=== PATIENT | female | born 1985 | race Caucasian/White ===

== ENCOUNTER 2024-08-19 11:20 | Inpatient (IN) | payer MEDICAID, SELFPAY ==
--- NOTE | ~2024-08-19 | CT_ITS ---
CLINICAL HISTORY: Abdominal pain Iv contrast only CT abdomen and pelvis with contrast Comparison: None Findings: No consolidation at the lung bases. Status post cholecystectomy. Unremarkable bladder. Left renal cyst. Bilateral renal subcentimeter low attenuating lesions which are too small to characterize. No hydronephrosis. Right nephrolithiasis is punctate. No left nephrolithiasis. Intrauterine device in appropriate position. The other solid organs are unremarkable. No small bowel dilation or definitive wall thickening. The cecum is prominent in size, measuring up to 7.5 cm which may indicate mild ileus. A normal appendix is likely identified. No secondary signs of acute appendicitis. There is liquid stool throughout the colon. Question mild wall thickening of the colon. Normal vasculature. No lymphadenopathy. No ascites. No acute osseous abnormality. Impression: Liquid stool throughout the colon may indicate diarrhea. Question wall thickening of the colon which may be due to colitis. This document has been electronically signed by: Madeline Moreno MD on 08/19/2024 14:13:08
[2024-08-19 11:33] VITALS: BP 100/58; BP 101/63; PULSE 58; PULSE 73; RESP 18; TEMP 36.4; O2SAT 100; BMI 23.0
--- NOTE | 2024-08-19 11:43 | ED.ABDPAIN ---
HPI - Abdominal Pain General Chief Complaint: Abdominal Pain Stated Complaint: ABD PAIN Time Seen by Provider: 08/19/24 11:34 Source: patient Mode of arrival: ambulatory Limitations: no limitations History of Present Illness HPI narrative: This is a 39 years old female presented to the emergency department complaining of abdominal pain she was referred to us by the urgent care, she states that she has been having abdominal pain and nausea and vomiting since . She had a prior cholecystectomy. MD elicited complaint: abdominal pain Onset (ago): day(s) (3) Pain Consistency: constant Location: epigastric Severity: moderate Quality: cramping Radiation: none Migration to: no migration Exacerbating factors: eating Relieving factors: nothing Related Data Allergies Allergy/AdvReac Type Severity Reaction Status Date / Time No Known Allergies Allergy Verified 08/19/24 11:35 Review of Systems Gastrointestinal: Reports abdominal pain and Reports GI cramping PMFSH Past Medical History Medical History Cyclical vomiting syndrome Asthma FH: cholecystectomy Surgical History [place] teeth removed Hx of tonsillectomy Social History Social History Smoked in Last 30 Days: No Use of substances other than those prescribed or required for medical reasons: Yes Substance Use Type: Heroin and Marijuana Substance Use Frequency: Daily Advance Directives: No Advance Directives Information Provided: Yes Do you have a plan to hurt others: No Plan Patient : No Physical Exam ED Vital Signs: Vital Signs - 24 hr 08/19/24 11:33 08/19/24 15:08 Temperature 97.5 F 98.1 F Pulse Rate 58 63 Respiratory Rate 18 16 Blood Pressure 101/63 95/54 L Pulse Oximetry 100 99 Oxygen Delivery Method Room Air Room Air BMI result Body Mass Index 23.0 Mild distress Const General: cooperative Nutritional Appearance: average body habitus Orientation/consciousness: patient oriented x3 HENMT Head: Yes normal to inspection Ears: hearing grossly normal bilaterally Face and sinus: Yes normal facial exam Neck Neck: Yes normal visual inspection Chest Chest palpation & inspection: normal inspection of the chest Resp Effort & Inspection: normal respiratory effort Auscultation: clear to auscultation bilaterally Cardio Jugular venous distension: no JVD Rate: regular rate Rhythm: regular rhythm GI Inspection: Yes normal to inspection Palpation (GI): Soft to palpation, not firm, nontender and no guarding Skin General skin exam: no rashes or lesions noted Lesions: no lesions Rashes: no rashes Neuro General: patient oriented x3 Course Reevaluation(s) Reevaluation #1: WORKUP COMPLETED PATIENT HAS A LACTIC ACIDOSIS ELEVATED WHITE COUNT IT IS REASONABLE TO ADMIT THE PATIENT, CT SHOWED A POSSIBLE COLITIS WE WILL COVER WITH IV ANTIBIOTIC LEVAQUIN AND FLAGYL CASE WAS DISCUSSED WITH THE HOSPITALIST Medical Decision Making Medical Decision Making [facility] Narrative: Patient presented to the emergency department complaining of abdominal pain nausea vomiting we will insert IV administer IV fluids and reassess Differential Diagnosis Differential Diagnoses: The differential diagnosis associated with the presentation includes Gastritis/diverticulitis/colitis Admission/Observation Consideration of admission/observation: Escalation of care including admission/observation considered Consult Healthcare Provider Management of the patient was discussed with: Hospitalist Lab Data [facility] Lab Attestation statement: I reviewed the patient's lab results. 08/19/24 11:48 08/19/24 11:48 Labs: Lab Results 08/19/24 08/19/24 08/19/24 Range/Units 11:40 11:48 14:03 WBC 25.0 H (4.8-10.8) X10*3/uL RBC 4.83 (4.20-5.50) X10*6/uL Hgb 14.1 (12.0-16.0) g/dl Hct 40.4 (37.0-47.0) % MCV 83.6 (80.0-98.0) fL MCH 29.2 (27.0-33.0) pg MCHC 34.9 (31.0-35.0) g/dl RDW 13.0 (11.0-16.0) % Plt Count 349 (160-400) X10*3/uL MPV 9.9 (9.4-12.3) fL Immature Gran % (Auto) 0.5 H (0.0-0.4) % Neut % (Auto) 80.1 H (45-73) % Lymph % (Auto) 10.3 L (20-40) % [place] % (Auto) 7.1 (2-11) % Eos % (Auto) 1.6 (0-4) % Baso % (Auto) 0.4 (0-2) % Lymph # (Auto) 2.6 (1.2-4.9) X10*3/uL [place] # (Auto) 1.8 H (0.1-1.2) X10*3/uL Eos # (Auto) 0.4 (0.0-0.4) X10*3/uL Baso # (Auto) 0.1 (0.0-0.2) X10*3/uL Abs Immat Gran (auto) 0.13 H (0.00-0.03) X10*3/uL Absolute Neuts (auto) 20.1 H (2.0-8.3) x10*3/uL Absolute Nucleated RBC 0.000 (0.0-0.012) X10*3/uL Nucleated RBC % (auto) 0.0 (0.0-0.2) /100WBC Smear Tech's Comments VERIFIED Sodium 138 (135-145) mmol/L Potassium 3.7 (3.3-5.1) mmol/L Chloride 110 H (96-108) mmol/L Carbon Dioxide 21 L (22-29) mmol/L Anion Gap 11 L (12-20) BUN 15 (9-16) mg/dL Creatinine 0.77 (0.5-1.4) mg/dL Estim Creat Clear Calc 89.1 Estimated GFR > 60 Random Glucose 84 (60-115) mg/dL Lactic Acid 2.8 H* (0.5-2.0) mmol/L Calcium 9.1 (8.4-10.2) mg/dL Total Bilirubin 1.1 H (0.0-1.0) mg/dL AST 17 (5-31) U/L ALT 10 (0-31) U/L Alkaline Phosphatase 66 (39-117) U/L Total Protein 7.3 (6.5-8.0) g/dL Albumin 4.1 (3.5-5.0) g/dL Lipase 29 (8-78) U/L Beta HCG, Quant < 2 mIU/mL Urine Color Yellow Urine Appearance Clear Urine pH 7.0 (5.0-9.0) Ur Specific [place] <= 1.005 (1.005-1.025) Urine Protein Negative (Neg-Trace) mg/dL Urine Glucose (UA) Negative (Negative) mg/dL Urine Ketones Negative (Negative) mg/dL Urine Blood Negative (Negative) Urine Nitrite Negative (Negative) Ur Leukocyte Esterase Negative (Negative) Urine RBC 0-2 (0-2) /HPF Urine WBC 0-5 (0-5) /HPF Ur Squamous Epith Cells 0-2 (0-2) /HPF Urine Bacteria None Seen (None Seen) Hyaline Casts 0-2 (0-2) /LPF Urine Test NEGATIVE (NEGATIVE) Urine Opiates Screen Not Detected (Not Detect) Ur Buprenorphine Scrn Not Detected (Not Detect) ng/mL Ur Oxycodone Screen Not Detected (Not Detect) ng/mL Urine Methadone Screen Not Detected (Not Detect) ng/mL Urine Fentanyl Screen POSITIVE H (Not Detect) Ur Barbiturates Screen Not Detected (Not Detect) Ur Phencyclidine Scrn Not Detected (Not Detect) Ur Amphetamines Screen Not Detected (Not Detect) U Benzodiazepines Scrn Not Detected (Not Detect) Urine Cocaine Screen Not Detected (Not Detect) U Marijuana (THC) Screen POSITIVE H (Not Detect) Independent Interpretation I performed an independent interpretation of an: CT Scan Radiology Impression Discussion of test interpretation with radiology: I have reviewed the radiologist's reading. Chronic Conditions SUBSTANCE ABUSE Core Measures AMI core measures followed: Yes Medications Administered Generic Name Dose Route Start Last Admin Trade Name Freq PRN Reason Stop Dose Admin Lactated Ringer's 1,000 mls @ 999 mls/hr 08/19/24 15:00 08/19/24 15:16 Lr IV 08/19/24 16:00 999 mls/hr .Q1H1M REA Administration Metronidazole 500 mg in 100 mls @ 100 mls/hr 08/19/24 14:54 08/19/24 15:16 Flagyl IV 08/19/24 15:53 100 mls/hr ONCE ONE Administration Discontinued Medications Generic Name Dose Route Start Last Admin Trade Name Freq PRN Reason Stop Dose Admin Diphenhydramine HCl 25 mg 08/19/24 11:41 08/19/24 11:56 Diphenhydramine Hcl 50 Mg/Ml Vial IVPUSH 08/19/24 11:42 25 mg ONCE ONE Administration Sodium Chloride 1,000 mls @ 999 mls/hr 08/19/24 11:45 08/19/24 11:57 Ns IVCONT 08/19/24 12:45 999 mls/hr .Q1H1M REA Administration Iohexol 100 ml 08/19/24 13:14 08/19/24 13:15 Iohexol 350 Mg/Ml 100 Ml Infus..Btl IV 08/19/24 13:15 85 ml ONCE ONE Administration Lorazepam 1 mg 08/19/24 11:39 08/19/24 11:57 Lorazepam 2 Mg/Ml Vial IVPUSH 08/19/24 11:40 1 mg ONCE ONE Administration Metoclopramide HCl 10 mg 08/19/24 11:41 08/19/24 11:57 Metoclopramide Hcl 10 Mg/2 Ml Vial IVPUSH 08/19/24 11:42 10 mg ONCE ONE Administration Critical Care Time Critical Care Time Critical Care Time: Yes Total Critical Care Time: 60 Attestation: LACTIC ACIDOSIS ELEVATED WHITE COUNT Discharge Plan Discharge Clinical Impression: Colitis Abdominal pain Qualifiers: Abdominal location: generalized Qualified Code(s): R10.84 - Generalized abdominal pain Patient Disposition: Admitted As Inpatient Print Language: Yakut
[2024-08-19 11:56] LABS: Basophils Absolute Auto 0.1 X10*3/uL (0.0-0.2); Basophils Percent Auto 0.4 % (0-2); Eosinophils Absolute Auto 0.4 X10*3/uL (0.0-0.4); Eosinophils Percent Auto 1.6 % (0-4); Hematocrit 40.4 % (37.0-47.0); Hemoglobin 14.1 g/dl (12.0-16.0); Imm Gran Abs Auto 0.13 X10*3/uL (0.00-0.03); Imm Gran Pct Auto 0.5 % (0.0-0.4); Lymphocytes Absolute Auto 2.6 X10*3/uL (1.2-4.9); Lymphocytes Percent Auto 10.3 % (20-40); MANUAL DIFF FLAG SCAN; Mean Corpuscular HGB Conc 34.9 g/dl (31.0-35.0); Mean Corpuscular Hemoglobin 29.2 pg (27.0-33.0); Mean Corpuscular Volume 83.6 fL (80.0-98.0); Mean Platelet Volume 9.9 fL (9.4-12.3); Monocytes Absolute Auto 1.8 X10*3/uL (0.1-1.2); Monocytes Percent Auto 7.1 % (2-11); Neutrophils Absolute Auto 20.1 x10*3/uL (2.0-8.3); Neutrophils Percent Auto 80.1 % (45-73); Platelet Count 349 X10*3/uL (160-400); Red Blood Count 4.83 X10*6/uL (4.20-5.50); SCAN SMEAR FLAG 1
[2024-08-19] MEDS: diphenhydrAMINE HCL 50 MG/ML VIAL 25 MG IVPUSH (11:56)
[2024-08-19] MEDS: 0.9 % Sodium Chloride 1,000 ML 999 ML IVCONT (11:57)
[2024-08-19] MEDS: Metoclopramide HCl 10 MG/2 ML VIAL IVPUSH (11:57)
[2024-08-19] MEDS: LORazepam 2 MG/ML VIAL 1 MG IVPUSH (11:57)
--- NOTE | 2024-08-19 12:01 | PC.NURSE ---
patient a&ox3, iv inserted, labs drawn, pt ambulated to bathroom with steady gait to bathroom, pt c/o 12/06 abd pain. pt also states she snorted heroin today to help with the pain. ivf running per order, pt medicated per order, call roger within reach, plan of care ongoing
[2024-08-19 12:02] LABS: Appearance Urine Clear; Color Urine Yellow; Glucose Urine UA Negative (Negative); Leukocyte Esterase Urine Negative (Negative); Nitrite Urine Negative (Negative); Specific Gravity - Urine <= 1.005 (1.005-1.025); Urine Blood Negative (Negative); Urine Ketones Negative (Negative); Urine Protein Negative (Neg-Trace)
[2024-08-19 12:06] LABS: UPreg QC Valid YES; Urine Pregnancy NEGATIVE (NEGATIVE)
[2024-08-19 12:07] LABS: Bacteria Urine None Seen (None Seen); Hyaline Casts Urine 0-2 /LPF (0-2); RBC Urine 0-2 /HPF (0-2); Squamous Epithelial Cell Urine 0-2 /HPF (0-2); WBC Urine 0-5 /HPF (0-5)
[2024-08-19 12:16] LABS: SLIDE REVIEW VERIFIED
[2024-08-19 12:19] LABS: Amphetamine Screen Urine Not Detected (Not Detect); Barbiturates, Urine Not Detected (Not Detect); Benzodiazepines Screen Urine Not Detected (Not Detect); Buprenorphine Scr Not Detected (Not Detect); Cannabinoid Screen Urine POSITIVE (Not Detect); Cocaine Screen Urine Not Detected (Not Detect); Fentanyl, urine POSITIVE (Not Detect); Methadone Screen, Urine Not Detected (Not Detect); Opiate Screen Urine Not Detected (Not Detect); Oxycodone Screen Urine Not Detected (Not Detect); Phencyclidine Screen Urine Not Detected (Not Detect)
[2024-08-19 12:20] LABS: Alanine Aminotransferase 10 U/L (0-31); Albumin Level 4.1 g/dL (3.5-5.0); Alkaline Phosphatase 66 U/L (39-117); Anion Gap 11 (12-20); Aspartate Amino Transferase 17 U/L (5-31); Bilirubin Total 1.1 mg/dL (0.0-1.0); Blood Urea Nitrogen 15 mg/dL (9-16); Calcium 9.1 mg/dL (8.4-10.2); Carbon Dioxide 21 mmol/L (22-29); Chloride 110 mmol/L (96-108); Creatinine Clr Calc Pharmacy 89.1; Estimated Glomerular Filt Rate > 60; Glucose Random 84 mg/dL (60-115); Lipase 29 U/L (8-78); Potassium 3.7 mmol/L (3.3-5.1); Sodium 138 mmol/L (135-145); Total Protein 7.3 g/dL (6.5-8.0)
[2024-08-19 12:31] LABS: HCG Quantitative < 2 mIU/mL
[2024-08-19] MEDS: iohexoL 350 MG/ML 100 ML INFUS..BTL IV (13:15)
[2024-08-19 14:35] LABS: Lactic Acid 2.8 mmol/L (0.5-2.0)
[2024-08-19 15:08] VITALS: BP 95/54; PULSE 63; RESP 16; TEMP 36.7; O2SAT 99
[2024-08-19] MEDS: metroNIDAZOLE/NS 500 MG/100 ML PIGGYBACK 100 MG IV ×2 (15:16→22:30)
[2024-08-19] MEDS: Lactated Ringers 1,000 ML 999 ML IV (15:16)
--- NOTE | 2024-08-19 15:17 | PC.NURSE ---
ivf and abx started per order, vss, hospitalist at bedside, call roger within reach, plan of care ongoing
--- NOTE | 2024-08-19 15:27 | PM.IMHP ---
History of Present Illness Date of Service: 08/19/24 Attending physician on admission: Vince Wilcox Chief Complaint: abdominal pain This is a 39-year-old female who presents to the emergency department with complaints of abdominal pain. She reports constant epigastric abdominal pain since . Her pain is associated with nausea and vomiting. She has had decreased oral intake. She also reports diarrhea although upon further investigation this appears to be chronic since she had a coli cystectomy. She denies any recent travel or take out food. She denies any associated fever or chills. Her diarrhea is nonbloody. In the emergency department she had elevated white blood cell count at 25,000, lactic acid of 2.8. She had a CAT scan which showed possible wall thickening and possible colitis. She was treated with IV antibiotics in the decision was made to admit her to the hospital for further management. Of note patient states she has the same epigastric abdominal pain that occurs at least once a month and has been doing so for the past 13 years. She does not currently have a primary care provider. She has reportedly seen multiple providers including GI in the past with no diagnosis or solution to her abdominal pain. She reports smoking marijuana multiple times daily. She also recently ?tried? snorting heroin for the past three days however her tox screen was positive for marijuana and fentanyl only. Review of Systems Review of Systems: Yes all other systems are reviewed and are negative Constitutional: Constitutional: Denies chills and Denies fever(s) Gastrointestinal: Gastrointestinal: Reports abdominal pain, Reports nausea and Reports vomiting PMF Medical History Cyclical vomiting syndrome Asthma FH: cholecystectomy Surgical History [place] teeth removed Hx of tonsillectomy Social History Smoked in Last 30 Days: No Use of substances other than those prescribed or required for medical reasons: Yes Substance Use Type: Heroin and Marijuana Substance Use Frequency: Daily Advance Directives: No Advance Directives Information Provided: Yes Do you have a plan to hurt others: No Plan Patient : No Meds Allergies Allergy/AdvReac Type Severity Reaction Status Date / Time No Known Allergies Allergy Verified 08/19/24 11:35 Active Medications: Current Medications Acetaminophen (Acetaminophen 325 Mg Tablet) 650 mg PO Q6H PRN PRN Reason: Pain, Mild 1-3,fever,headache Calcium Carbonate (Calcium Carbonate 750 Mg Tab.Chew) 750 mg PO Q4H PRN PRN Reason: Heartburn Ceftriaxone Sodium (Ceftriaxone Sodium 1 Gm Vial) 1 gm IVPUSH Q24H [facility] Enoxaparin Sodium (Enoxaparin Sodium 40 Mg/0.4 Ml Syringe) 40 mg SUBCUT Q24H [facility] Lactated Ringer's (Lr) 1,000 mls @ 999 mls/hr IV .Q1H1M [facility] Stop: 08/19/24 16:00 Last Admin: 08/19/24 15:16 Dose: 999 mls/hr Levofloxacin (Levaquin) 500 mg in 100 mls @ 100 mls/hr IV ONCE ONE Stop: 08/19/24 15:52 Metronidazole (Flagyl) 500 mg in 100 mls @ 100 mls/hr IV ONCE ONE Stop: 08/19/24 15:53 Last Admin: 08/19/24 15:16 Dose: 100 mls/hr Metronidazole (Flagyl) 500 mg in 100 mls @ 100 mls/hr IV Q8H [facility] Magnesium Hydroxide (Milk Of Magnesia 30 Ml Oral.Susp) 30 ml PO DAILY PRN PRN Reason: Constipation Melatonin (Melatonin 3 Mg Tablet) 6 mg PO BEDTIME PRN PRN Reason: Insomnia Morphine Sulfate (Morphine Sulfate 4 Mg/Ml Cartridge) 2 mg IVPUSH Q4H PRN; Protocol PRN Reason: Pain, Severe (Pain Scale 7-10) Ondansetron HCl (Ondansetron Hcl 4 Mg/2 Ml Vial) 4 mg IVPUSH Q8H PRN PRN Reason: Nausea and Vomiting Pantoprazole Sodium (Pantoprazole Sodium 40 Mg/10 Ml Vial) 40 mg IVPUSH DAILY@0630 [facility] Sodium Chloride (0.9 % Sodium Chloride Flush 3 Ml Syringe) 3 ml IVFLUSH QSHIFT [facility] Home Medications ?Medication ?Instructions ?Recorded ?Confirmed ?Last Taken ?Type albuterol sulfate 90 mcg/actuation 2 puff inhalation Q6H PRN dyspnea 08/19/24 Unknown History aerosol inhaler (Ventolin HFA) fluticasone propionate 50 1 spray intranasal BID 08/19/24 Unknown History mcg/actuation nasal spray,suspension ipratropium 0.5 mg-albuterol 3 mg 3 ml inhalation Q8H PRN wheezing 08/19/24 Unknown History (2.5 mg base)/3 mL nebulization soln Physical Exam Vital Signs and Narrative: Vital Signs: Last Vital Signs Temp 98.1 F 08/19/24 15:08 Pulse 63 08/19/24 15:08 Resp 16 08/19/24 15:08 BP 95/54 L 08/19/24 15:08 Pulse Ox 99 08/19/24 15:08 O2 Del Method Room Air 08/19/24 15:08 BMI result Body Mass Index 23.0 Const: Other: tearful General: alert and awake Orientation/consciousness: patient oriented x3 Resp: Effort & Inspection: normal respiratory effort, able to speak in complete sentences, no respiratory distress and no use of accessory muscles Cardio: Rate: regular rate Heart sounds: S1 normal heart sound present GI: Other: no guarding no rebound, no tenderness on exam Inspection: No distended Palpation (GI): not soft and nontender Neuro: General: patient oriented x3, moves all extremities and CN's II-XI intact bilaterally Results Labs 08/19/24 11:48 08/19/24 11:48 Labs: Laboratory Results - last 24 hr 08/19/24 08/19/24 08/19/24 11:40 11:48 14:03 MCV 83.6 MCH 29.2 MCHC 34.9 RDW 13.0 Plt Count 349 MPV 9.9 Immature Gran % (Auto) 0.5 H Neut % (Auto) 80.1 H Lymph % (Auto) 10.3 L [place] % (Auto) 7.1 Eos % (Auto) 1.6 Baso % (Auto) 0.4 Lymph # (Auto) 2.6 [place] # (Auto) 1.8 H Eos # (Auto) 0.4 Baso # (Auto) 0.1 Abs Immat Gran (auto) 0.13 H Absolute Neuts (auto) 20.1 H Absolute Nucleated RBC 0.000 Nucleated RBC % (auto) 0.0 Smear Tech's Comments VERIFIED Anion Gap 11 L Estim Creat Clear Calc 89.1 Estimated GFR > 60 Random Glucose 84 Lactic Acid 2.8 H* Calcium 9.1 Total Bilirubin 1.1 H AST 17 ALT 10 Alkaline Phosphatase 66 Total Protein 7.3 Albumin 4.1 Lipase 29 Beta HCG, Quant < 2 Urine Color Yellow Urine Appearance Clear Urine pH 7.0 Ur Specific [place] <= 1.005 Urine Protein Negative Urine Glucose (UA) Negative Urine Ketones Negative Urine Blood Negative Urine Nitrite Negative Ur Leukocyte Esterase Negative Urine RBC 0-2 Urine WBC 0-5 Ur Squamous Epith Cells 0-2 Urine Bacteria None Seen Hyaline Casts 0-2 Urine Test NEGATIVE Urine Opiates Screen Not Detected Ur Buprenorphine Scrn Not Detected Ur Oxycodone Screen Not Detected Urine Methadone Screen Not Detected Urine Fentanyl Screen POSITIVE H Ur Barbiturates Screen Not Detected Ur Phencyclidine Scrn Not Detected Ur Amphetamines Screen Not Detected U Benzodiazepines Scrn Not Detected Urine Cocaine Screen Not Detected U Marijuana (THC) Screen POSITIVE H Assessment and Plan (1) Abdominal pain: Qualifiers: Abdominal location: generalized Qualified Code(s): R10.84 - Generalized abdominal pain Status: Acute Plan This is a 39-year-old female with history of asthma, PTSD, anxiety, depression who presents to the emergency department with 4 day history persistent abdominal pain found to have possible colitis Abdominal pain Patient reports similar episodes of abdominal pain occurring once a month for the past [address] scan shows possibility of colitis however patient has pain is in the epigastric region, not c/w colitis Other possibilities include marijuana hyperemesis syndrome as patient smokes multiple times daily lipase negative does not meet sepsis criteria We will continue empiric antibiotics for possible underlying colitis Check stool studies, C diff (although pt reports diarrhea is chronic) Continue IVF, IV PPI, IV pain medication, IV nausea medication Blood cultures pending Acute lactic acidosis Not due to sepsis, probably due to dehydration from vomiting Polysubstance use Daily marijuana use, reports only 3 days of heroin use, although tox screen +for fentanyl DVT prophylaxis-Lovenox Quality Stroke Does the patient have a stroke diagnosis?: No VTE Prior VTE?: No VTE Risk Level:: Medical - moderate - high VTE Device Contraindication: N/A - Device Ordered VTE Drug Contraindication: Treatment Not Indicated
--- NOTE | 2024-08-19 16:02 | PHA.MEDREC ---
Addendum entered by Oscar Monterroso [facility] 08/19/24 16:14: med rec reviewed Original Note: Pharmacy Consult ? Medication Reconciliation Pharmacy has completed the medication reconciliation. Spoke to pt to confirm meds.
[2024-08-19 16:09] LABS: Reflex Lactate? Lactic Acid Added
[2024-08-19] MEDS: levoFLOXacin/D5W 500 MG/100 ML PIGGYBACK 100 MG IV (16:41)
[2024-08-19] MEDS: Morphine Sulfate 4 MG/ML CARTRIDGE 2 MG IVPUSH ×2 (17:02→21:39)
[2024-08-19] MEDS: Pantoprazole Sodium 40 MG/10 ML VIAL IVPUSH (17:03)
[2024-08-19] MEDS: Enoxaparin Sodium 40 MG/0.4 ML SYRINGE SUBCUT (17:03)
--- NOTE | 2024-08-19 18:44 | PC.NURSE ---
[facility] DCF came to the ED wanting to speak with the patient, they told this nurse that urgent care filed a case with them. They requested that this nurse get an addiction consult for her to eventually discharge with services. Provider was notified and consult was placed
--- NOTE | 2024-08-19 19:54 | PC.NURSE ---
pt reports 8/10 abd pain, aware pt is still in pain prn last administered 1700, no due til 2099. pt also reports DHALIWAL requested tylenol.
[2024-08-19 20:00] VITALS: BP 112/66; PULSE 76; RESP 16; TEMP 37; O2SAT 98
[2024-08-19] MEDS: Acetaminophen 325 MG TABLET 650 MG PO (20:01)
--- NOTE | 2024-08-19 20:21 | PC.NURSE ---
pt requested food, educated on NPO status.
--- NOTE | 2024-08-19 22:07 | PC.NURSE ---
pt reports 8/10 abd pain, prn given per mar.
[2024-08-20 00:56] VITALS: BP 117/64; PULSE 70; RESP 16; TEMP 37.1; O2SAT 98
[2024-08-20] MEDS: Morphine Sulfate 4 MG/ML CARTRIDGE 2 MG IVPUSH ×2 (01:47→06:06)
--- NOTE | 2024-08-20 03:33 | PC.NURSE ---
pt requested benadryl for sleep, offered melatonin. Yolanda BRICE aware, tulio BRICE no sleep meds after 0300. pt made aware.
[2024-08-20 05:07] LABS: Hematocrit 35.1 % (37.0-47.0); Hemoglobin 12.1 g/dl (12.0-16.0); Mean Corpuscular HGB Conc 34.5 g/dl (31.0-35.0); Mean Corpuscular Hemoglobin 29.3 pg (27.0-33.0); Mean Platelet Volume 10.6 fL (9.4-12.3); Platelet Count 309 X10*3/uL (160-400); Red Blood Count 4.13 X10*6/uL (4.20-5.50); Red Cell Distribution Width 13.1 % (11.0-16.0); White Blood Count 13.7 X10*3/uL (4.8-10.8)
[2024-08-20 05:25] LABS: Anion Gap 11 (12-20); Blood Urea Nitrogen 11 mg/dL (9-16); Calcium 8.2 mg/dL (8.4-10.2); Carbon Dioxide 20 mmol/L (22-29); Chloride 112 mmol/L (96-108); Estimated Glomerular Filt Rate > 60; Glucose Random 75 mg/dL (60-115); Potassium 3.4 mmol/L (3.3-5.1); Sodium 140 mmol/L (135-145)
[2024-08-20 06:00] VITALS: BP 122/71; PULSE 85; RESP 16; O2SAT 98
[2024-08-20] MEDS: Acetaminophen 325 MG TABLET 650 MG PO (06:05)
[2024-08-20] MEDS: metroNIDAZOLE/NS 500 MG/100 ML PIGGYBACK 100 MG IV (06:06)
[2024-08-20] MEDS: Pantoprazole Sodium 40 MG/10 ML VIAL IVPUSH (06:06)
[2024-08-20] MEDS: Fluticasone Propionate Nasal 16 GM SPRAY 1 SPRAY NOSTRIL-B (09:05)
--- NOTE | 2024-08-20 09:55 | PC.NURSE ---
pt speaking w/ addiction asbestos handler, Rosibel, at this time.
--- NOTE | 2024-08-20 11:06 | PM.DS ---
DS: Providers Provider Date of Service: 08/20/24 Date of admission: 08/19/24 15:18 Date of discharge: 08/20/24 Primary care physician: Unknown Physician Consults: 08/19/24 18:10 Addiction Medicine Provider Routine Consulting Provider: Addiction Covering Reason for consultation: substance use; requested by dcf Has provider been notified: No 08/20/24 09:42 Inpt - Recovery Team Routine Comment: Reason for consultation: JOLIE eval DS: Diagnosis Discharge Diagnosis (1) Abdominal pain: Status: Acute DS: Summary Hospital Course Hospital Course: admission hpi Chief Complaint: abdominal pain This is a 39-year-old female who presents to the emergency department with complaints of abdominal pain. She reports constant epigastric abdominal pain since . Her pain is associated with nausea and vomiting. She has had decreased oral intake. She also reports diarrhea although upon further investigation this appears to be chronic since she had a coli cystectomy. She denies any recent travel or take out food. She denies any associated fever or chills. Her diarrhea is nonbloody. In the emergency department she had elevated white blood cell count at 25,000, lactic acid of 2.8. She had a CAT scan which showed possible wall thickening and possible colitis. She was treated with IV antibiotics in the decision was made to admit her to the hospital for further management. Of note patient states she has the same epigastric abdominal pain that occurs at least once a month and has been doing so for the past 13 years. She does not currently have a primary care provider. She has reportedly seen multiple providers including GI in the past with no diagnosis or solution to her abdominal pain. She reports smoking marijuana multiple times daily. She also recently ?tried? snorting heroin for the past three days however her tox screen was positive for marijuana and fentanyl only. Hospital course: The patient was admitted and treated with intravenous antibiotics, specifically ceftriaxone and Flagyl, for probable colitis. The patient demonstrated a quicker than anticipated recovery, with resolution of pain by the following day and successful advancement of diet with good tolerance. As the patient has improved significantly, the plan is for discharge home to complete a 5-day course of oral antibiotics consisting of Cefitin and Flagyl. Outpatient follow-up with the patient's primary care physician (PCP) will be necessary. Final diagnosis: Abdominal pain colitis Time Attestation Discharge Coordination Time (in mins): 40 Quality: Safe Use of Opioids Does Pt have an Active Cancer Diagnosis on the Problem List?: No Quality: Stroke Does the patient have a stroke diagnosis?: No Physical Exam Vital Signs: Vital Signs: Last Vital Signs Temp 98.7 F 08/20/24 00:56 Pulse 85 08/20/24 06:00 Resp 16 08/20/24 06:00 BP 122/71 08/20/24 06:00 Pulse Ox 98 08/20/24 06:00 O2 Del Method Room Air 08/20/24 06:00 BMI result Body Mass Index 23.0 General: AO X 3, no acute distress Resp: CTA bilateral CVS: S1,S2,RRR GI: +BS, NT, no distention Skin: No rash Neuro: motor grossly intact Psych: appropriate affect DS: Data Data Completed and Pending Labs on day of discharge: Laboratory Results - last 24 hr 08/19/24 08/19/24 08/19/24 11:40 11:48 14:03 WBC 25.0 H RBC 4.83 Hgb 14.1 Hct 40.4 MCV 83.6 MCH 29.2 MCHC 34.9 RDW 13.0 Plt Count 349 MPV 9.9 Immature Gran % (Auto) 0.5 H Neut % (Auto) 80.1 H Lymph % (Auto) 10.3 L [place] % (Auto) 7.1 Eos % (Auto) 1.6 Baso % (Auto) 0.4 Lymph # (Auto) 2.6 [place] # (Auto) 1.8 H Eos # (Auto) 0.4 Baso # (Auto) 0.1 Abs Immat Gran (auto) 0.13 H Absolute Neuts (auto) 20.1 H Absolute Nucleated RBC 0.000 Nucleated RBC % (auto) 0.0 Smear Tech's Comments VERIFIED Sodium 138 Potassium 3.7 Chloride 110 H Carbon Dioxide 21 L Anion Gap 11 L BUN 15 Creatinine 0.77 Estim Creat Clear Calc 89.1 Estimated GFR > 60 Random Glucose 84 Lactic Acid 2.8 H* Lactic Acid F/U @ 2Hr Calcium 9.1 Total Bilirubin 1.1 H AST 17 ALT 10 Alkaline Phosphatase 66 Total Protein 7.3 Albumin 4.1 Lipase 29 Beta HCG, Quant < 2 Urine Color Yellow Urine Appearance Clear Urine pH 7.0 Ur Specific [place] <= 1.005 Urine Protein Negative Urine Glucose (UA) Negative Urine Ketones Negative Urine Blood Negative Urine Nitrite Negative Ur Leukocyte Esterase Negative Urine RBC 0-2 Urine WBC 0-5 Ur Squamous Epith Cells 0-2 Urine Bacteria None Seen Hyaline Casts 0-2 Urine Test NEGATIVE Urine Opiates Screen Not Detected Ur Buprenorphine Scrn Not Detected Ur Oxycodone Screen Not Detected Urine Methadone Screen Not Detected Urine Fentanyl Screen POSITIVE H Ur Barbiturates Screen Not Detected Ur Phencyclidine Scrn Not Detected Ur Amphetamines Screen Not Detected U Benzodiazepines Scrn Not Detected Urine Cocaine Screen Not Detected U Marijuana (THC) Screen POSITIVE H 08/19/24 08/20/24 16:31 03:42 WBC 13.7 H RBC 4.13 L Hgb 12.1 Hct 35.1 L MCV 85.0 MCH 29.3 MCHC 34.5 RDW 13.1 Plt Count 309 MPV 10.6 Immature Gran % (Auto) Neut % (Auto) Lymph % (Auto) [place] % (Auto) Eos % (Auto) Baso % (Auto) Lymph # (Auto) [place] # (Auto) Eos # (Auto) Baso # (Auto) Abs Immat Gran (auto) Absolute Neuts (auto) Absolute Nucleated RBC 0.000 Nucleated RBC % (auto) 0.0 Smear Tech's Comments Sodium 140 Potassium 3.4 Chloride 112 H Carbon Dioxide 20 L Anion Gap 11 L BUN 11 Creatinine 0.70 Estim Creat Clear Calc 98.0 Estimated GFR > 60 Random Glucose 75 Lactic Acid Lactic Acid F/U @ 2Hr 1.0 Calcium 8.2 L D Total Bilirubin AST ALT Alkaline Phosphatase Total Protein Albumin Lipase Beta HCG, Quant Urine Color Urine Appearance Urine pH Ur Specific [place] Urine Protein Urine Glucose (UA) Urine Ketones Urine Blood Urine Nitrite Ur Leukocyte Esterase Urine RBC Urine WBC Ur Squamous Epith Cells Urine Bacteria Hyaline Casts Urine Test Urine Opiates Screen Ur Buprenorphine Scrn Ur Oxycodone Screen Urine Methadone Screen Urine Fentanyl Screen Ur Barbiturates Screen Ur Phencyclidine Scrn Ur Amphetamines Screen U Benzodiazepines Scrn Urine Cocaine Screen U Marijuana (THC) Screen Discharge Plan Discharge Anticipated Discharge Date/Time: 08/20/24 11:20 Patient Disposition: Home, Self-Care Discharge Diagnosis: Abdominal pain Referrals: Physician,Unknown J [Primary Care Provider] - 1 Week Discharge Medications: New cefuroxime axetil 500 mg tablet 500 mg PO BID 4 Days Qty: 8 0RF metronidazole 500 mg tablet 500 mg PO TID 4 Days Qty: 12 0RF Continued ipratropium-albuterol 0.5 mg-3 mg(2.5 mg base)/3 mL solution for nebulization 3 ml INHALATION Q8H PRN (Reason: wheezing) albuterol sulfate [Ventolin HFA] 90 mcg/actuation HFA aerosol inhaler 2 puff INHALATION Q6H PRN (Reason: dyspnea) fluticasone propionate 50 mcg/actuation spray,suspension 1 spray intranasal DAILY Discharge Orders: Discharge Order (Routine); Ordered 08/20/24 Ordered By: Zeus Casillas Diet: Advance to usual diet Activity on Discharge: As tolerated Stand Alone Forms: Patient Portal Discharge page Print Language: [place] Care Plan Goals: recovery from colitis Health Concerns: colitis, abdominal pain Plan of Treatment: take Ceftin and Flagyl as recommened and follow up with your Doctor in a week Assessment: see above
--- NOTE | 2024-08-20 11:26 | MHC.CM.PN ---
Pt lives with her , she does not have a PCP, brochure given. She does not use home health services, has a nebulizer at home, not currently needing to use. HCP form to be completed here and added to chart. to transport home at DC, DCP: home, self care. CM to follow for DC needs.
[2024-08-20 12:08] VITALS: BP 114/69; PULSE 68; RESP 16; TEMP 36.7; O2SAT 98
[2024-08-20 12:10] VITALS: BP 114/69; PULSE 68; RESP 16; TEMP 36.7; O2SAT 98
--- NOTE | 2024-08-20 12:11 | PC.NURSE ---
pt tolerated PO challenge w/ difficulty. requesting to be discharged. admitting provider notified/aware. pt provided w/ d/c instructions.
== END 2024-08-20 12:12 | disposition home or self-care (01) | DRG 249 ==
LOC: HO.ED 15:00 → HO.EDOVER 15:38
PROVIDERS: Admitting Provider Physician Assistant Medical; Emergency Provider Emergency Medicine; Visit Provider Internal Medicine
DX: K52.9 Noninfective gastroenteritis and colitis, unspecified (principal); E87.21 Acute metabolic acidosis; F19.90 Other psychoactive substance use, unspecified, uncomplicated; Z79.51 Long term (current) use of inhaled steroids; Z79.899 Other long term (current) drug therapy
CPT/HCPCS: 36415; 74177; 80048; 80053; 80307; 81001; 81025; 83605; 83690; 84702; 85025; 85027; 87040; 99285; J1200; J1650; J1836; J1956; J2060; J2270; J2470; J2765; J7120; Q9967; S9485

== ENCOUNTER → 2024-08-19 11:41 | Outpatient (BNV) | payer MEDICAID, SELFPAY | PROVIDERS: Emergency Provider Emergency Medicine; Visit Provider Radiology Diagnostic Radiology | DX: R10.9 Unspecified abdominal pain (principal) | CPT/HCPCS: 74177 ==

== ENCOUNTER → 2024-08-19 15:18 | Outpatient (BNV) | payer MEDICAID, SELFPAY | PROVIDERS: Admitting Provider Physician Assistant Medical; Emergency Provider Emergency Medicine; Visit Provider Physician Assistant Medical | DX: R10.84 Generalized abdominal pain (principal) | CPT/HCPCS: 99223; 99239 ==

== ENCOUNTER 2024-08-24 20:42 | Emergency (ER) | payer MEDICAID, SELFPAY ==
[2024-08-24 20:48] VITALS: BP 109/70; PULSE 85; RESP 17; TEMP 36.5; O2SAT 98; BMI 22.7
--- NOTE | 2024-08-24 20:53 | ED_ITS ---
HPI - General Adult General Chief complaint: Abdominal Pain Stated complaint: Flu symptoms Time Seen by Provider: 08/25/24 00:26 Source: patient Limitations: no limitations History of Present Illness ED Provider: Hamida Weinstein PA-C HPI narrative: 39-year-old female with a history of substance abuse, cyclic vomiting syndrome, asthma who presents with ongoing abdominal pain x8 days. Patient states she was diagnosed with colitis last week, she just finished her antibiotics. Patient states the diarrhea has resolved, but her pain nausea vomiting has persisted. Denies fever. Related Data Home Medications ?Medication ?Instructions ?Recorded ?Confirmed albuterol sulfate 90 mcg/actuation 2 puff inhalation Q6H PRN dyspnea 08/19/24 08/19/24 aerosol inhaler (Ventolin HFA) fluticasone propionate 50 1 spray intranasal DAILY 08/19/24 08/19/24 mcg/actuation nasal spray,suspension ipratropium 0.5 mg-albuterol 3 mg 3 ml inhalation Q8H PRN wheezing 08/19/24 08/19/24 (2.5 mg base)/3 mL nebulization soln Previous Rx's ?Medication ?Instructions ?Recorded cefuroxime axetil 500 mg tablet 500 mg PO BID 4 days #8 tabs 08/20/24 metronidazole 500 mg tablet 500 mg PO TID 4 days #12 tabs 08/20/24 dicyclomine 20 mg tablet 20 mg PO BID PRN abdominal pain #7 08/25/24 tabs ondansetron HCl 4 mg tablet 4 mg PO Q8H PRN nausea and 08/25/24 vomiting #10 tabs ondansetron 4 mg disintegrating 4 mg PO Q8H PRN nausea and 09/07/24 tablet vomiting #10 tabs Allergies Allergy/AdvReac Type Severity Reaction Status Date / Time No Known Allergies Allergy Verified 09/06/24 17:35 Review of Systems 2 Review of Systems: Yes all other systems are reviewed and are negative Constitutional: Constitutional: Denies fatigue, Denies fever(s) and Reports malaise Cardiovascular: Cardiovascular: Denies chest pain Gastrointestinal: Gastrointestinal: Reports abdominal pain, Denies diarrhea, Reports nausea and Reports vomiting Endocrine: Endocrine: Denies fatigue PMFSH Past Medical History Attestation statement: The following information was validated with the patient. Medical History Cyclical vomiting syndrome Asthma FH: cholecystectomy Surgical History [place] teeth removed Hx of tonsillectomy Social History Social History Patient Tobacco Use Status: Never used Tobacco Smoked in Last 30 Days: No Substance Use Type: Marijuana Substance Use Frequency: Daily Advance Directives: Yes Advance Directives on File: Yes Advance Directives Date on File: 08/04/24 Do you have a plan to hurt others: No Plan Patient : No service: No Physical Exam ED Vital Signs: Vital Signs - 24 hr 08/24/24 20:48 08/25/24 00:53 Temperature 97.7 F 98.2 F Pulse Rate 85 54 Respiratory Rate 17 16 Blood Pressure 109/70 141/86 H Pulse Oximetry 98 97 Oxygen Delivery Method Room Air Room Air BMI result Body Mass Index 22.7 Const Other: Alert, appears older than stated age, moaning and writhing on the bed Orientation/consciousness: patient oriented x3 Resp Effort & Inspection: normal respiratory effort Cardio Other: Normal peripheral perfusion GI Other: Abdomen is soft, nondistended, patient guarding against my exam prior to palpating the abdomen, with distraction, the abdomen is soft with no objective guarding Skin Other: Warm dry no rash Neuro General: patient oriented x3, gait normal, no focal motor deficits and CN's II- XI intact bilaterally Psych Other: Somewhat hostile, emotionally labile Course Course Course Narrative: RME, this is a rapid medical exam performed by Nii Ugarte please refer to primary provider for complete H&P- 39-year-old female presents for evaluation of abdominal pain, nausea, vomiting and diarrhea. She was diagnosed with colitis on 08/26/2024. Plan for repeat labs, will defer advanced in his ear her she was well-appearing with stable vital signs. Reevaluation(s) Reevaluation #1: I went to reassess the patient, she has not had any active vomiting in the ER, I relayed to her that her labs were unremarkable, in fact they are improved from her prior visit, she still is asking for morphine. I explained to the patient that there was not a clinical indication for morphine at this time, that she has underlying viral illness, that this is not an indication for an opiate. She is angry and displeased, I will be discharging her now. Medications Administered Discontinued Medications Generic Name Dose Route Start Last Admin Trade Name Kelsi PRN Reason Stop Dose Admin Dicyclomine HCl 20 mg 08/25/24 01:19 08/25/24 01:26 Dicyclomine Hcl 10 Mg Capsule PO 08/25/24 01:20 20 mg ONCE ONE Administration Sodium Chloride 1,000 mls @ 999 mls/hr 08/25/24 00:45 08/25/24 02:15 Ns IV 08/25/24 01:45 Infused .Q1H1M REA Infusion Ondansetron HCl 4 mg 08/25/24 00:38 08/25/24 00:53 Ondansetron Hcl 4 Mg/2 Ml Vial IVPUSH 08/25/24 00:39 4 mg ONCE ONE Administration Sucralfate 1 gm 08/25/24 00:38 08/25/24 00:53 Sucralfate Oral Suspension 1 Gm/10 Ml Oral.Susp PO 08/25/24 00:39 1 gm ONCE ONE Administration Medical Decision Making Medical Decision Making MDM Narrative: 39-year-old female with a history of substance abuse, cyclic vomiting syndrome, asthma who presents with ongoing abdominal pain x8 days. Patient states she was diagnosed with colitis last week, she just finished her antibiotics. Patient states the diarrhea has resolved, but her pain nausea vomiting has persisted. Denies fever. Problem: Cyclic vomiting syndrome, substance abuse History: Per patient I have considered the following differential diagnoses: Viral gastroenteritis, diverticulitis, ongoing colitis, cyclic vomiting, medication seeking behaviors Plan: Patient's abdominal exam is benign, her diarrhea has subsided, I am not inclined to obtain repeat imaging. We will medicate with antiemetic, Bentyl and fluid, we will screen labs, we will reassess the need to obtain imaging. The patient was actively asking for narcotics. I have independently reviewed the following tests: Labs: Slight leukocytosis, not anemic, no electrolyte abnormality, viral panel is negative Lab Data 08/24/24 21:25 08/24/24 21:25 Labs: Lab Results 08/24/24 Range/Units 21:25 WBC 12.0 H (4.8-10.8) X10*3/uL RBC 4.67 (4.20-5.50) X10*6/uL Hgb 13.6 (12.0-16.0) g/dl Hct 40.5 (37.0-47.0) % MCV 86.7 (80.0-98.0) fL MCH 29.1 (27.0-33.0) pg MCHC 33.6 (31.0-35.0) g/dl RDW 13.7 (11.0-16.0) % Plt Count 330 (160-400) X10*3/uL MPV 10.3 (9.4-12.3) fL Immature Gran % (Auto) 0.3 (0.0-0.4) % Neut % (Auto) 57.4 (45-73) % Lymph % (Auto) 31.7 (20-40) % [place] % (Auto) 7.4 (2-11) % Eos % (Auto) 2.5 (0-4) % Baso % (Auto) 0.7 (0-2) % Lymph # (Auto) 3.8 (1.2-4.9) X10*3/uL [place] # (Auto) 0.9 (0.1-1.2) X10*3/uL Eos # (Auto) 0.3 (0.0-0.4) X10*3/uL Baso # (Auto) 0.1 (0.0-0.2) X10*3/uL Abs Immat Gran (auto) 0.03 (0.00-0.03) X10*3/uL Absolute Neuts (auto) 6.9 (2.0-8.3) x10*3/uL Absolute Nucleated RBC 0.000 (0.0-0.012) X10*3/uL Nucleated RBC % (auto) 0.0 (0.0-0.2) /100WBC Sodium 141 (135-145) mmol/L Potassium 3.7 (3.3-5.1) mmol/L Chloride 112 H (96-108) mmol/L Carbon Dioxide 24 (22-29) mmol/L Anion Gap 9 L (12-20) BUN 13 (9-16) mg/dL Creatinine 0.76 (0.5-1.4) mg/dL Estim Creat Clear Calc 90.3 Estimated GFR > 60 Random Glucose 104 (60-115) mg/dL Calcium 9.3 D (8.4-10.2) mg/dL Total Bilirubin 0.4 (0.0-1.0) mg/dL AST 24 (5-31) U/L ALT 13 (0-31) U/L Alkaline Phosphatase 57 (39-117) U/L Total Protein 6.9 (6.5-8.0) g/dL Albumin 4.2 (3.5-5.0) g/dL Lipase 76 (8-78) U/L Urine Color Dark Yellow Urine Appearance Clear Urine pH 6.0 (5.0-9.0) Ur Specific [place] >= 1.030 H (1.005-1.025) Urine Protein Trace (Neg-Trace) mg/dL Urine Glucose (UA) Negative (Negative) mg/dL Urine Ketones Trace (Negative) mg/dL Urine Blood Negative (Negative) Urine Nitrite Negative (Negative) Ur Leukocyte Esterase Small (1+) H (Negative) Urine RBC 0-2 (0-2) /HPF Urine WBC 0-5 (0-5) /HPF Ur Squamous Epith Cells 3-5 (0-2) /HPF Calcium Oxalate Crystal Present Urine Bacteria None Seen (None Seen) Hyaline Casts 0-2 (0-2) /LPF Influenza Type A (PCR) NEGATIVE (Negative) Influenza Type B (PCR) NEGATIVE (Negative) RSV RNA Qual (PCR) NEGATIVE (Negative) SARS-CoV-2 RNA (RT-PCR) NEGATIVE (Negative) Discharge Plan Discharge Clinical Impression: Gastroenteritis Patient Disposition: Home, Self-Care Instructions: Gastroenteritis (ED) Additional Instructions: All of your labs were improved from a few days ago when you were seen in the emergency department. Uses Zofran as needed for your ongoing nausea, use the dicyclomine as needed for your abdominal pain and diarrhea. Follow up with your primary care provider as needed. Prescriptions: New ondansetron HCl 4 mg tablet 4 mg PO Q8H PRN (Reason: nausea and vomiting) Qty: 10 0RF dicyclomine 20 mg tablet 20 mg PO BID PRN (Reason: abdominal pain) Qty: 7 0RF No Action ondansetron 4 mg tablet,disintegrating 4 mg PO Q8H PRN (Reason: nausea and vomiting) Qty: 10 0RF ipratropium-albuterol 0.5 mg-3 mg(2.5 mg base)/3 mL solution for nebulization 3 ml INHALATION Q8H PRN (Reason: wheezing) albuterol sulfate [Ventolin HFA] 90 mcg/actuation HFA aerosol inhaler 2 puff INHALATION Q6H PRN (Reason: dyspnea) fluticasone propionate 50 mcg/actuation spray,suspension 1 spray intranasal DAILY cefuroxime axetil 500 mg tablet 500 mg PO BID 4 Days Qty: 8 0RF metronidazole 500 mg tablet 500 mg PO TID 4 Days Qty: 12 0RF Interventions: ED Discharge Assessment Last Done: 08/25/24 02:34 Discharge Date/Time: 08/25/24 02:35 Print Language: [place] Island[place]
[2024-08-24 21:30] LABS: MANUAL DIFF FLAG NO
[2024-08-24 21:33] LABS: Appearance Urine Clear; Color Urine Dark Yellow; Glucose Urine UA Negative (Negative); Leukocyte Esterase Urine Small (1+) (Negative); Nitrite Urine Negative (Negative); Specific Gravity - Urine >= 1.030 (1.005-1.025); UMIC TRIGGER UACC YES; Urine Blood Negative (Negative); Urine Ketones Trace mg/dL (Negative); Urine Protein Trace mg/dL (Neg-Trace)
[2024-08-24 21:34] LABS: Basophils Absolute Auto 0.1 X10*3/uL (0.0-0.2); Basophils Percent Auto 0.7 % (0-2); Eosinophils Absolute Auto 0.3 X10*3/uL (0.0-0.4); Eosinophils Percent Auto 2.5 % (0-4); Hematocrit 40.5 % (37.0-47.0); Hemoglobin 13.6 g/dl (12.0-16.0); Imm Gran Abs Auto 0.03 X10*3/uL (0.00-0.03); Imm Gran Pct Auto 0.3 % (0.0-0.4); Lymphocytes Absolute Auto 3.8 X10*3/uL (1.2-4.9); Lymphocytes Percent Auto 31.7 % (20-40); Mean Corpuscular HGB Conc 33.6 g/dl (31.0-35.0); Mean Corpuscular Hemoglobin 29.1 pg (27.0-33.0); Mean Corpuscular Volume 86.7 fL (80.0-98.0); Mean Platelet Volume 10.3 fL (9.4-12.3); Monocytes Absolute Auto 0.9 X10*3/uL (0.1-1.2); Monocytes Percent Auto 7.4 % (2-11); Neutrophils Absolute Auto 6.9 x10*3/uL (2.0-8.3); Neutrophils Percent Auto 57.4 % (45-73); Platelet Count 330 X10*3/uL (160-400); Red Blood Count 4.67 X10*6/uL (4.20-5.50); Red Cell Distribution Width 13.7 % (11.0-16.0)
[2024-08-24 21:40] LABS: Bacteria Urine None Seen (None Seen); Calcium Oxalate Crystals Urine Present; Hyaline Casts Urine 0-2 /LPF (0-2); RBC Urine 0-2 /HPF (0-2); UACC Culture Trigger YES; WBC Urine 0-5 /HPF (0-5)
[2024-08-24 21:45] LABS: Alanine Aminotransferase 13 U/L (0-31); Albumin Level 4.2 g/dL (3.5-5.0); Alkaline Phosphatase 57 U/L (39-117); Anion Gap 9 (12-20); Aspartate Amino Transferase 24 U/L (5-31); Bilirubin Total 0.4 mg/dL (0.0-1.0); Blood Urea Nitrogen 13 mg/dL (9-16); Calcium 9.3 mg/dL (8.4-10.2); Carbon Dioxide 24 mmol/L (22-29); Chloride 112 mmol/L (96-108); Creatinine Clr Calc Pharmacy 90.3; Estimated Glomerular Filt Rate > 60; Glucose Random 104 mg/dL (60-115); Lipase 76 U/L (8-78); Potassium 3.7 mmol/L (3.3-5.1); Sodium 141 mmol/L (135-145); Total Protein 6.9 g/dL (6.5-8.0)
[2024-08-24 22:08] LABS: Influenza A PCR NEGATIVE (Negative); Influenza B PCR NEGATIVE (Negative); Resp Syncy Virus RNA Qual PCR NEGATIVE (Negative); SARS COV2 PCR INHOUSE NEGATIVE (Negative)
[2024-08-25 00:53] VITALS: BP 141/86; PULSE 54; RESP 16; TEMP 36.8; O2SAT 97
[2024-08-25] MEDS: 0.9 % Sodium Chloride 1,000 ML 999 ML IV (00:53)
[2024-08-25] MEDS: ondansetron HCL 4 MG/2 ML VIAL IVPUSH (00:53)
[2024-08-25] MEDS: Sucralfate Oral Suspension 1 GM/10 ML ORAL.SUSP PO (00:53)
[2024-08-25] MEDS: Dicyclomine HCl 10 MG CAPSULE 20 MG PO (01:26)
[2024-08-25 02:34] VITALS: BP 138/70; PULSE 68; RESP 20; TEMP 37; O2SAT 98
== END 2024-08-25 02:35 | disposition home or self-care (01) ==
PROVIDERS: Emergency Provider Emergency Medicine
DX: K52.9 Noninfective gastroenteritis and colitis, unspecified (principal); R11.2 Nausea with vomiting, unspecified; Z03.818 Encounter for observation for suspected exposure to other biological agents ruled out; Z79.899 Other long term (current) drug therapy
CPT/HCPCS: 0241U; 80053; 81001; 83690; 85025; 87086; 96361; 96374; 99283; 99284; J2405

== ENCOUNTER 2024-09-06 17:13 | Emergency (ER) | payer MEDICAID, SELFPAY ==
--- NOTE | 2024-09-06 17:33 | ED_ITS ---
HPI - Headache General Chief Complaint: Headache Stated Complaint: Migraine Time Seen by Provider: 09/06/24 21:29 Source: patient Mode of arrival: ambulatory Limitations: no limitations History of Present Illness ED Provider: iMn Garcia DO HPI Narrative: 39-year-old female with past medical history of migraine headaches, last episode being a couple of years ago previously on sumatriptan presents to the ED for a gradually, atraumatic progressively worsening headache described as in the bitemporal regions that started yesterday afternoon. She states the pain is similar to her previous migraines but more severe and was refractory to acetaminophen, last dose taken at 11:00 this morning. She reports associated nausea and vomiting and sensitivity to light. She feels fatigued. She denies severe headache upon initial onset, syncope or near-syncope, weakness or numbness of the arms or legs or any additional symptoms today. Related Data Home Medications ?Medication ?Instructions ?Recorded ?Confirmed albuterol sulfate 90 mcg/actuation 2 puff inhalation Q6H PRN dyspnea 08/19/24 08/19/24 aerosol inhaler (Ventolin HFA) fluticasone propionate 50 1 spray intranasal DAILY 08/19/24 08/19/24 mcg/actuation nasal spray,suspension ipratropium 0.5 mg-albuterol 3 mg 3 ml inhalation Q8H PRN wheezing 08/19/24 08/19/24 (2.5 mg base)/3 mL nebulization soln Previous Rx's ?Medication ?Instructions ?Recorded cefuroxime axetil 500 mg tablet 500 mg PO BID 4 days #8 tabs 08/20/24 metronidazole 500 mg tablet 500 mg PO TID 4 days #12 tabs 08/20/24 dicyclomine 20 mg tablet 20 mg PO BID PRN abdominal pain #7 08/25/24 tabs ondansetron HCl 4 mg tablet 4 mg PO Q8H PRN nausea and 08/25/24 vomiting #10 tabs ondansetron 4 mg disintegrating 4 mg PO Q8H PRN nausea and 09/07/24 tablet vomiting #10 tabs Allergies Allergy/AdvReac Type Severity Reaction Status Date / Time No Known Allergies Allergy Verified 09/06/24 17:35 Review of Systems 2 Review of Systems: Yes all other systems are reviewed and are negative PMFSH Past Medical History Medical History Cyclical vomiting syndrome Asthma FH: cholecystectomy Surgical History [place] teeth removed Hx of tonsillectomy Social History Social History Patient Tobacco Use Status: Never used Tobacco Smoked in Last 30 Days: No Substance Use Type: Marijuana Substance Use Frequency: Daily Advance Directives: Yes Advance Directives on File: Yes Advance Directives Date on File: 08/04/24 Do you have a plan to hurt others: No Plan Patient : No service: No Physical Exam 2 Vital Signs: Vital Signs: Last Vital Signs Temp 98.2 F 09/07/24 00:51 Pulse 66 09/07/24 00:51 Resp 16 09/07/24 00:51 BP 119/66 09/07/24 00:51 Pulse Ox 96 09/07/24 00:51 O2 Del Method Room Air 09/07/24 00:51 BMI result Body Mass Index 22.5 Constitutional: ?Sleeping on assessment but arousable to gentle verbal stimuli, Alert, oriented, speaking in full sentences HEENT: ?Normocephalic, atraumatic. ? Eyes: ?PERRL, EOMI Neck: ?Supple, nontender Chest: ?No chest wall tenderness Respiratory: ?Lungs clear to auscultation, no increased work of breathing Cardio: ?Regular rate and rhythm, no murmur, 2+ radial and DP pulses symmetrically GI: ?Soft, nondistended, nontender Back: ?Normal range of motion, nontender Skin: ?No rash, no lesions Neuro: ?Alert and oriented to person, place and time, moves all 4 extremities, no focal deficits, normal strength and sensation of the bilateral upper and lower extremities Extremities: ?No swelling or tenderness, full range of motion Psych: ?Calm, alert and cooperative, appropriate behavior Course Course Course Narrative: This is a Rapid Medical Exam performed in triage by Christiane Dillard PA-C. Full HPI, ROS and PE to be performed by primary ED provider. 39yo F w/pmhx asthma, cyclical vomiting presenting to the ED c/o migraine DHALIWAL x yesterday. Admits to hx migraines. Admits to assoc photophobia. DHALIWAL NOT maximal at onset. Took Tylenol around around 11AM w/o relief. Admits to using cannabis denies other etoh or drug use PE: nonfocal, ambulating w/steady gait Plan: Labs, SARs Medications Administered Discontinued Medications Generic Name Dose Route Start Last Admin Trade Name Kelsi PRN Reason Stop Dose Admin Dexamethasone Sodium Phosphate 6 mg 09/07/24 00:22 09/07/24 00:43 Dexamethasone Sod Phosphate 4 Mg/Ml Vial IVPUSH 09/07/24 00:23 6 mg ONCE ONE Administration Diphenhydramine HCl 25 mg 09/06/24 22:17 09/06/24 23:10 Diphenhydramine Hcl 50 Mg/Ml Vial IVPUSH 09/06/24 22:18 25 mg ONCE ONE Administration Haloperidol Lactate 2.5 mg 09/07/24 00:23 09/07/24 00:43 Haloperidol Lactate 5 Mg/Ml Vial IVPUSH 09/07/24 00:24 2.5 mg ONCE ONE Administration Acetaminophen 1,000 mg in 100 mls @ 400 mls/hr 09/06/24 22:17 09/06/24 23:26 Ofirmev IV 09/06/24 22:31 Infused ONCE ONE Infusion Sodium Chloride 1,000 mls @ 999 mls/hr 09/06/24 22:30 09/07/24 00:21 Ns IV 09/06/24 23:30 Infused .Q1H1M REA Infusion Ketorolac Tromethamine 15 mg 09/06/24 22:17 09/06/24 23:09 Ketorolac Tromethamine 15 Mg/Ml Vial IVPUSH 09/06/24 22:18 15 mg ONCE ONE Administration Prochlorperazine Edisylate 10 mg 09/06/24 22:17 09/06/24 23:09 Prochlorperazine Edisylate 10 Mg/2 Ml Vial IVPUSH 09/06/24 22:18 10 mg ONCE ONE Administration Medical Decision Making Medical Decision Making MDM Narrative: This patient presents with a headache most consistent with migraine headache. Differential diagnosis includes migraine versus tension type headache. No headache red flags. Neurologic exam without evidence of meningismus, focal neurologic findings. Presentation not consistent with acute intracranial bleed to include SAH (lack of risk factors, headache history). I completed a structured, evidence-based clinical evaluation to screen for subarachnoid hemorrhage. The evidence indicates that the patient is very low risk for SAH and this is consistent with my clinical intuition. The risk of further workup or hospitalization is likely higher than the risk of the patient having a subarachnoid hemorrhage.? Presentation not consistent with acute [employer] infection including meningitis or brain abscess. Temporal arteritis unlikely, as is acute angle closure glaucoma given history and physical findings. No hypercoagulable risk factors predisposing to cerebral venous thrombosis. No history of trauma to raise suspicion for carotid or vertebral dissection. Presentation not consistent with other acute, emergent causes of headache at this time. Plan to treat symptomatically with pain medication. No indication for imaging/LP at this time. We will address her symptoms with Compazine, diphenhydramine, acetaminophen, ketorolac and IV fluids and reassess. Improvement to a 7/10 with initial meds. Re-dose with dexamethasone and low- dose haloperidol with significant improvement to a 5/10 which patient feels is very manageable at home. Prescribed Zofran as needed for persistent nausea and vomiting. Provided PCP and Neurology referrals for follow-up and return precautions. Patient is comfortable and agrees with plan. Lab Data MDM Lab Attestation statement: I reviewed the patient's lab results. 09/06/24 19:01 09/06/24 19:01 Labs: Lab Results 09/06/24 Range/Units 19:01 WBC 6.7 (4.8-10.8) X10*3/uL RBC 4.45 (4.20-5.50) X10*6/uL Hgb 12.8 (12.0-16.0) g/dl Hct 38.7 (37.0-47.0) % MCV 87.0 (80.0-98.0) fL MCH 28.8 (27.0-33.0) pg MCHC 33.1 (31.0-35.0) g/dl RDW 13.9 (11.0-16.0) % Plt Count 192 D (160-400) X10*3/uL MPV 10.9 (9.4-12.3) fL Immature Gran % (Auto) 0.1 (0.0-0.4) % Neut % (Auto) 45.5 (45-73) % Lymph % (Auto) 44.6 H (20-40) % Davison % (Auto) 7.4 (2-11) % Eos % (Auto) 2.1 (0-4) % Baso % (Auto) 0.3 (0-2) % Lymph # (Auto) 3.0 (1.2-4.9) X10*3/uL Davison # (Auto) 0.5 (0.1-1.2) X10*3/uL Eos # (Auto) 0.1 (0.0-0.4) X10*3/uL Baso # (Auto) 0.0 (0.0-0.2) X10*3/uL Abs Immat Gran (auto) 0.01 (0.00-0.03) X10*3/uL Absolute Neuts (auto) 3.1 (2.0-8.3) x10*3/uL Absolute Nucleated RBC 0.000 (0.0-0.012) X10*3/uL Nucleated RBC % (auto) 0.0 (0.0-0.2) /100WBC Sodium 144 (135-145) mmol/L Potassium 4.0 (3.3-5.1) mmol/L Chloride 112 H (96-108) mmol/L Carbon Dioxide 24 (22-29) mmol/L Anion Gap 12 (12-20) BUN 15 (9-16) mg/dL Creatinine 0.64 (0.5-1.4) mg/dL Estim Creat Clear Calc 107.2 Estimated GFR > 60 Random Glucose 87 (60-115) mg/dL Calcium 8.9 (8.4-10.2) mg/dL Beta HCG, Quant < 2 mIU/mL Influenza Type A (PCR) NEGATIVE (Negative) Influenza Type B (PCR) NEGATIVE (Negative) RSV RNA Qual (PCR) NEGATIVE (Negative) SARS-CoV-2 RNA (RT-PCR) NEGATIVE (Negative) Discharge Plan Discharge Clinical Impression: Headache Qualifiers: Headache type: unspecified Headache chronicity pattern: episodic headache Patient Disposition: Home, Self-Care Instructions: Acute Headache (ED) Additional Instructions: You have been examined for a headache in the emergency department today. Please follow up with your primary care physician to ensure that you are recovering as expected. Although no evidence of an?immediately life-threatening condition was found at the time of examination today, you should return immediately if you develop ANY new or worsening symptoms, especially sudden increase in pain, change in your vision, vomiting, fevers, or numbness/weakness in your arms or legs. When you return home, you should lie in a cool dark room and minimize sounds and other distractions while you rest. Thank you for choosing us for your care. ? Prescriptions: New ondansetron 4 mg tablet,disintegrating 4 mg PO Q8H PRN (Reason: nausea and vomiting) Qty: 10 0RF No Action ipratropium-albuterol 0.5 mg-3 mg(2.5 mg base)/3 mL solution for nebulization 3 ml INHALATION Q8H PRN (Reason: wheezing) albuterol sulfate [Ventolin HFA] 90 mcg/actuation HFA aerosol inhaler 2 puff INHALATION Q6H PRN (Reason: dyspnea) fluticasone propionate 50 mcg/actuation spray,suspension 1 spray intranasal DAILY cefuroxime axetil 500 mg tablet 500 mg PO BID 4 Days Qty: 8 0RF metronidazole 500 mg tablet 500 mg PO TID 4 Days Qty: 12 0RF ondansetron HCl 4 mg tablet 4 mg PO Q8H PRN (Reason: nausea and vomiting) Qty: 10 0RF dicyclomine 20 mg tablet 20 mg PO BID PRN (Reason: abdominal pain) Qty: 7 0RF Referrals: [facility] [place] Family Medicine [Provider Group] Shannon Nassar MD [Physician] - Stand Alone Forms: Work/School Release Print Language: Latvian
[2024-09-06 17:35] VITALS: BP 119/70; PULSE 72; RESP 16; TEMP 37.1; O2SAT 98; BMI 22.5
[2024-09-06 19:04] LABS: MANUAL DIFF FLAG NO
[2024-09-06 19:07] LABS: Basophils Percent Auto 0.3 % (0-2); Eosinophils Absolute Auto 0.1 X10*3/uL (0.0-0.4); Eosinophils Percent Auto 2.1 % (0-4); Hematocrit 38.7 % (37.0-47.0); Hemoglobin 12.8 g/dl (12.0-16.0); Imm Gran Abs Auto 0.01 X10*3/uL (0.00-0.03); Imm Gran Pct Auto 0.1 % (0.0-0.4); Lymphocytes Percent Auto 44.6 % (20-40); Mean Corpuscular HGB Conc 33.1 g/dl (31.0-35.0); Mean Corpuscular Hemoglobin 28.8 pg (27.0-33.0); Mean Platelet Volume 10.9 fL (9.4-12.3); Monocytes Absolute Auto 0.5 X10*3/uL (0.1-1.2); Monocytes Percent Auto 7.4 % (2-11); Neutrophils Absolute Auto 3.1 x10*3/uL (2.0-8.3); Neutrophils Percent Auto 45.5 % (45-73); Platelet Count 192 X10*3/uL (160-400); Red Blood Count 4.45 X10*6/uL (4.20-5.50); Red Cell Distribution Width 13.9 % (11.0-16.0); White Blood Count 6.7 X10*3/uL (4.8-10.8)
[2024-09-06 19:24] LABS: Anion Gap 12 (12-20); Blood Urea Nitrogen 15 mg/dL (9-16); Calcium 8.9 mg/dL (8.4-10.2); Carbon Dioxide 24 mmol/L (22-29); Chloride 112 mmol/L (96-108); Creatinine Clr Calc Pharmacy 107.2; Estimated Glomerular Filt Rate > 60; Glucose Random 87 mg/dL (60-115); Sodium 144 mmol/L (135-145)
[2024-09-06 19:48] LABS: Influenza A PCR NEGATIVE (Negative); Influenza B PCR NEGATIVE (Negative); Resp Syncy Virus RNA Qual PCR NEGATIVE (Negative); SARS COV2 PCR INHOUSE NEGATIVE (Negative)
[2024-09-06 22:42] LABS: HCG Quantitative < 2 mIU/mL
[2024-09-06] MEDS: Ketorolac Tromethamine 15 MG/ML VIAL IVPUSH (23:09)
[2024-09-06] MEDS: Prochlorperazine Edisylate 10 MG/2 ML VIAL IVPUSH (23:09)
[2024-09-06] MEDS: diphenhydrAMINE HCL 50 MG/ML VIAL 25 MG IVPUSH (23:10)
[2024-09-06] MEDS: Acetaminophen 1,000 MG/100 ML PIGGYBACK 400 MG IV (23:10)
[2024-09-06] MEDS: 0.9 % Sodium Chloride 1,000 ML 999 ML IV (23:11)
--- NOTE | 2024-09-06 23:16 | PC.NURSE ---
20 G IV line established in R AC, patient medicated per JUL.
[2024-09-07] MEDS: Haloperidol Lactate 5 MG/ML VIAL 2.5 MG IVPUSH (00:43)
[2024-09-07] MEDS: dexAMETHasone sod phosphate 4 MG/ML VIAL 6 MG IVPUSH (00:43)
[2024-09-07 00:51] VITALS: BP 119/66; PULSE 66; RESP 16; TEMP 36.8; O2SAT 96
[2024-09-07 01:38] VITALS: BP 111/80; PULSE 63; RESP 16; TEMP 36.8; O2SAT 98
== END 2024-09-07 01:39 | disposition home or self-care (01) ==
PROVIDERS: Physician Assistant; Emergency Provider Emergency Medicine
DX: R51.9 Headache, unspecified (principal); Z03.818 Encounter for observation for suspected exposure to other biological agents ruled out; J45.909 Unspecified asthma, uncomplicated
CPT/HCPCS: 0241U; 36415; 80048; 84702; 85025; 96365; 96375; 99285; J0131; J0737; J1100; J1200; J1630; J1885

== ENCOUNTER 2024-12-10 20:07 | Emergency (ER) | payer MEDICAID, SELFPAY ==
--- NOTE | ~2024-12-10 | XR_ITS ---
CLINICAL HISTORY: cough, SOB 2 view chest x-ray Comparison: None provided Findings: Mild right basilar atelectasis/pneumonitis. No consolidation, pneumothorax, or pleural effusion. Cardiac silhouette and mediastinal contours are within normal limits. 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 IMPRESSION: Mild right basilar atelectasis/pneumonitis. (Subsegmental). No consolidation at this time. This document has been electronically signed by: Sukhdeep Morris MD on 12/10/2024 21:04:51
[2024-12-10 20:09] VITALS: BP 129/73; PULSE 81; RESP 16; TEMP 36.6; O2SAT 97; BMI 24.9
--- NOTE | 2024-12-10 20:31 | ED.GENADULT ---
HPI - General Adult General Chief complaint: Upper Respiratory Symptoms Stated complaint: Coughing Time Seen by Provider: 12/10/24 22:00 Source: patient Mode of arrival: ambulatory Limitations: no limitations History of Present Illness ED Provider: Jennie Gonzalez NP HPI narrative: Patient is a 39-year-old female who presents emergency department for evaluation. She has been experiencing for the past 2 weeks persistent cough intermittently productive, scratchy throat, shortness of breath. Has a history of asthma, has not had her inhalers for at least 6 months as she recently moved and does not have a PCP. She denies any associated fevers or chills, headache, dizziness, neck pain, chest pain, nausea, vomiting, abdominal pain, numbness or tingling of the extremities. Denies any known sick contacts. She is not a cigarette smoker. Denies recreational drug or alcohol usage. Related Data Home Medications ?Medication ?Instructions ?Recorded ?Confirmed albuterol sulfate 90 mcg/actuation 2 puff inhalation Q6H PRN dyspnea 08/19/24 08/19/24 aerosol inhaler (Ventolin HFA) fluticasone propionate 50 1 spray intranasal DAILY 08/19/24 08/19/24 mcg/actuation nasal spray,suspension ipratropium 0.5 mg-albuterol 3 mg 3 ml inhalation Q8H PRN wheezing 08/19/24 08/19/24 (2.5 mg base)/3 mL nebulization soln Previous Rx's ?Medication ?Instructions ?Recorded cefuroxime axetil 500 mg tablet 500 mg PO BID 4 days #8 tabs 08/20/24 metronidazole 500 mg tablet 500 mg PO TID 4 days #12 tabs 08/20/24 dicyclomine 20 mg tablet 20 mg PO BID PRN abdominal pain #7 08/25/24 tabs ondansetron HCl 4 mg tablet 4 mg PO Q8H PRN nausea and 08/25/24 vomiting #10 tabs ondansetron 4 mg disintegrating 4 mg PO Q8H PRN nausea and 09/07/24 tablet vomiting #10 tabs albuterol sulfate 90 mcg/actuation 2 puff inhalation Q4-6H PRN 12/10/24 aerosol inhaler (Ventolin HFA) shortness of breath or wheezing #6.7 grams amoxicillin 500 mg tablet 1,000 mg (2 x 500 mg) PO TID 5 07/14/25 days #30 tabs prednisone 20 mg tablet 40 mg (2 x 20 mg) PO DAILY 5 days 12/10/24 #10 tabs Allergies Allergy/AdvReac Type Severity Reaction Status Date / Time Seasonal Allergies Allergy Sneezing Verified 12/10/24 20:34 Review of Systems Review of Systems: Yes all other systems are reviewed and are negative [facility] Past Medical History Attestation statement: The following information was validated with the patient. Source: old records reviewed Medical History Cyclical vomiting syndrome Asthma FH: cholecystectomy Surgical History [place] teeth removed Hx of tonsillectomy Social History Social History Patient Tobacco Use Status: Never used Tobacco Substance Use Type: Marijuana Advance Directives: Yes Advance Directives on File: Yes Advance Directives Date on File: 08/24/24 Do you have a plan to hurt others: No Plan service: No Physical Exam ED Vital Signs: Vital Signs - 24 hr 12/10/24 20:09 Temperature 97.9 F Pulse Rate 81 Respiratory Rate 16 Blood Pressure 129/73 Pulse Oximetry 97 Oxygen Delivery Method Room Air BMI result Body Mass Index 24.9 Appearance: Alert.?Oriented to person, place and time. No acute distress.?Normal affect. Eyes: Pupils equal, round and reactive to light.? ENT: TM normal bilaterally. Pharynx normal.?? Neck: Normal inspection.? Neck supple.??No cervical adenopathy CVS: Heart sounds normal. Normal heart rate and rhythm.? Pulses normal.?? Respiratory: No respiratory distress.? Lung sounds clear mild expiratory wheezing in the bilateral bases Abdomen: Soft and non-tender. Normoactive bowel sounds. Skin: Skin warm and dry.? Normal skin color.? ? Extremities: No lower extremity edema.? Neuro: Moves all extremities spontaneously. Sensation intact bilaterally. No motor deficits. Ambulates with normal steady gait. Course Course Course Narrative: RME performed by Deepika Crowley PA-C. Patient is a 39 year old assigned female at presenting to the emergency department with a persistent cough. Patient states she has asthma and over the last 2 weeks she has had a persistent cough and is out of her albuterol and does not have a PCP. Detailed physical exam and review of systems are deferred to the veterinary virus serum inspector. Imaging and swabs ordered. Patient placed back in the waiting room pending room availability and results. Medical Decision Making Medical Decision Making [facility] Narrative: Patient is a 31-year-old female past medical history of asthma, cyclical vomiting syndrome who presents emergency department for evaluation of cough and shortness breath as per HPI. COVID-19 /influenza testing is negative. Given history and physical examination, concern for pneumonia, CXR was obtained and reveals concerning for a right lower lobe pneumonia, she does have a history of cyclical vomiting, states she has not vomited in many months molar suspicion for aspiration abscess time. Was sent to the pharmacy prescription for amoxicillin, she has faint expiratory wheezing in bilateral lower lobes she is not currently on her asthma medication, will send prescription for albuterol, short course of prednisone a additionally. Symptoms at this time consistent with ACS, PERC negative, not consistent with pulmonary embolism. Overall she is well-appearing, nontoxic, afebrile no tachycardia tachypnea or hypoxia, she is ambulatory with a steady gait. Reviewed conservative treatment. Advised to follow-up with primary care provider as needed, discussed reasons to return back to the emergency department. All questions were answered. Patient discharged home in stable condition. Differential Diagnosis Differential Diagnoses: The differential diagnosis associated with the presentation includes ( See narrative above) Admission/Observation Consideration of admission/observation: Escalation of care including admission/observation considered ( see narrative above) Lab Data [facility] Lab Attestation statement: I reviewed the patient's lab results. ( see narrative above) Labs: Lab Results 12/10/24 Range/Units 21:10 Influenza Type A (PCR) NEGATIVE (Negative) Influenza Type B (PCR) NEGATIVE (Negative) RSV RNA Qual (PCR) NEGATIVE (Negative) SARS-CoV-2 RNA (RT-PCR) NEGATIVE (Negative) Independent Interpretation I performed an independent interpretation of an: Plain X-Ray (See narrative above) Radiology Impression Discussion of test interpretation with radiology: I have reviewed the radiologist's reading. Radiologist Impression: 2 view chest x-ray Comparison: None provided Findings: Mild right basilar atelectasis/pneumonitis. No consolidation, pneumothorax, or pleural effusion. Cardiac silhouette and mediastinal contours are within normal limits. 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 IMPRESSION: Mild right basilar atelectasis/pneumonitis. (Subsegmental). No consolidation at this time. Independent Historian Clinical information obtained from an independent historian. History obtained from or confirmed by: Spouse External Record Review External record reviewed: Outpatient record Prescription Management I considered prescription management with: Pain Medication ( acetaminophen/ibuprofen) and Antibiotic Discharge Plan Discharge Clinical Impression: Pneumonia Qualifiers: Pneumonia type: due to unspecified organism Laterality: right Lung location: lower lobe of lung Qualified Code(s): J18.9 - Pneumonia, unspecified organism Patient Disposition: Home, Self-Care Instructions: Pneumonia (ED) Prescriptions: New amoxicillin 500 mg tablet 1,000 mg PO TID 5 Days Qty: 30 0RF prednisone 20 mg tablet 40 mg PO DAILY 5 Days Qty: 10 0RF albuterol sulfate [Ventolin HFA] 90 mcg/actuation HFA aerosol inhaler 2 puff inhalation Q4-6H PRN (Reason: shortness of breath or wheezing) Qty: 6.7 0RF No Action ondansetron 4 mg tablet,disintegrating 4 mg PO Q8H PRN (Reason: nausea and vomiting) Qty: 10 0RF ipratropium-albuterol 0.5 mg-3 mg(2.5 mg base)/3 mL solution for nebulization 3 ml INHALATION Q8H PRN (Reason: wheezing) albuterol sulfate [Ventolin HFA] 90 mcg/actuation HFA aerosol inhaler 2 puff INHALATION Q6H PRN (Reason: dyspnea) fluticasone propionate 50 mcg/actuation spray,suspension 1 spray intranasal DAILY cefuroxime axetil 500 mg tablet 500 mg PO BID 4 Days Qty: 8 0RF metronidazole 500 mg tablet 500 mg PO TID 4 Days Qty: 12 0RF ondansetron HCl 4 mg tablet 4 mg PO Q8H PRN (Reason: nausea and vomiting) Qty: 10 0RF dicyclomine 20 mg tablet 20 mg PO BID PRN (Reason: abdominal pain) Qty: 7 0RF Referrals: Physician,None [Primary Care Provider, Medical] Print Language: Hebrew
[2024-12-10 22:12] LABS: Resp Syncy Virus RNA Qual PCR NEGATIVE (Negative); SARS COV2 PCR INHOUSE NEGATIVE (Negative)
[2024-12-10 22:35] VITALS: BP 114/62; PULSE 62; RESP 18; TEMP 36.7; O2SAT 98
[2024-12-10 22:53] VITALS: BP 114/62; PULSE 62; RESP 18; TEMP 36.7; O2SAT 98
== END 2024-12-10 22:54 | disposition home or self-care (01) ==
PROVIDERS: Physician Assistant Medical; Emergency Provider Emergency Medicine
DX: J18.9 Pneumonia, unspecified organism (principal); R05.9 Cough, unspecified; J02.9 Acute pharyngitis, unspecified; J45.909 Unspecified asthma, uncomplicated; Z79.899 Other long term (current) drug therapy
CPT/HCPCS: 71046; 87637; 99283

== ENCOUNTER → 2024-12-10 20:32 | Outpatient (BNV) | payer MEDICAID, SELFPAY | PROVIDERS: Visit Provider Radiology Neuroradiology | DX: R05.1 Acute cough (principal) | CPT/HCPCS: 71046 ==

== ENCOUNTER → 2025-05-09 07:10 | Outpatient (REF) | payer OTHER, SELFPAY ==
[2025-05-09 07:28] LABS: MANUAL DIFF FLAG NO
--- NOTE | 2025-05-09 07:47 | ECG_ITS ---
Test Reason : p;alpitations Blood Pressure : */* mmHG Vent. Rate : 65 BPM Atrial Rate : 65 BPM P-R Int : 132 ms QRS Dur : 96 ms QT Int : 408 ms P-R-T Axes : 74 56 37 degrees QTcB Int : 424 ms Normal sinus rhythm Normal ECG No previous ECGs available Referred By: Mayte Hedrick Electronically Signed By: RIKI JUAREZ MD
[2025-05-09 07:56] LABS: Hematocrit 39.0 % (37.0-47.0); Hemoglobin 13.1 g/dl (12.0-16.0); Imm Gran Abs Auto 0.01 X10*3/uL (0.00-0.03); Imm Gran Pct Auto 0.1 % (0.0-0.4); Lymphocytes Absolute Auto 1.9 X10*3/uL (1.2-4.9); Mean Corpuscular HGB Conc 33.6 g/dl (31.0-35.0); Mean Corpuscular Hemoglobin 30.6 pg (27.0-33.0); Mean Corpuscular Volume 91.1 fL (80.0-98.0); NRBC Abs Auto 0.000 X10*3/uL (0.0-0.012); NRBC Pct Auto 0.0 /100WBC (0.0-0.2); Platelet Count 244 X10*3/uL (160-400); Red Blood Count 4.28 X10*6/uL (4.20-5.50); White Blood Count 7.6 X10*3/uL (4.8-10.8)
[2025-05-09 08:23] LABS: Total Hemoglobin (HGBA1C) 2305.0486 umol/L
[2025-05-09 08:36] LABS: Alanine Aminotransferase 15 U/L (0-31); Albumin Level 4.6 g/dL (3.5-5.0); Alkaline Phosphatase 63 U/L (39-117); Anion Gap 7 (12-20); Aspartate Amino Transferase 19 U/L (5-31); Blood Urea Nitrogen 11 mg/dL (9-16); Calcium 8.9 mg/dL (8.4-10.2); Carbon Dioxide 23 mmol/L (22-29); Chloride 114 mmol/L (96-108); Cholesterol 150 mg/dL (<200); Estimated Glomerular Filt Rate > 60; HDL Cholesterol 53 mg/dL (>40); Magnesium 2.2 mg/dL (1.6-2.6); Potassium 4.1 mmol/L (3.3-5.1); Sodium 140 mmol/L (135-145); Total Protein 7.2 g/dL (6.5-8.0); Triglycerides 31 mg/dL (<150)
[2025-05-09 10:21] LABS: Reflex LDLD? No
== END ==
LOC: HO.CARD 07:10
PROVIDERS: PCP Student in an Organized Health Care Education/Training Program; Visit Provider Student in an Organized Health Care Education/Training Program
DX: Z00.00 Encounter for general adult medical examination without abnormal findings (principal); R00.2 Palpitations; Z13.1 Encounter for screening for diabetes mellitus; Z13.220 Encounter for screening for lipoid disorders
CPT/HCPCS: 36415; 80053; 80061; 83036; 83735; 84443; 85025; 93005

== ENCOUNTER → 2025-05-09 07:47 | Outpatient (BNV) | payer OTHER, SELFPAY | PROVIDERS: PCP Student in an Organized Health Care Education/Training Program; Visit Provider Internal Medicine Cardiovascular Disease | DX: R00.2 Palpitations (principal) | CPT/HCPCS: 93010 ==